=== PATIENT | female | born 1965 | race Caucasian/White ===

== ENCOUNTER 2019-01-26 18:47 | Emergency (ER) | payer BC ==
[2019-01-26 19:35] VITALS: BP 118/74
--- NOTE | 2019-01-26 19:35 | UC ---
Ear Complaint HPI - HPI Summary HPI Summary: 53-year-old female who complains of left earache and left-sided sinus pressure over the past 2 weeks. She did have cold symptoms over the past couple of weeks. She had been swimming approximately one week ago but not recently. - History of Current Complaint Chief Complaint: UCEar Stated Complaint: LEFT EAR PAIN Time Seen by Provider: 01/26/19 19:35 Hx Obtained From: Patient Hx Last Menstrual Period: 07/07/15 ?: No Onset/Duration: Gradual Onset Severity Initially: Mild Severity Currently: Moderate Pain Intensity: 5 Aggravating Factors: Nothing Alleviating Factors: Nothing - Patient has been taking Mucinex, Sudafed, Zyrtec without relief. Associated Signs/Symptoms: Positive: URI Symptoms - Allergies/Home Medications Allergies/Adverse Reactions: Allergies Allergy/AdvReac Type Severity Reaction Status Date / Time No Known Allergies Allergy Verified 07/28/15 18:48 PMH/Surg Hx/FS Hx/Imm Hx Previously Healthy: Yes Other History Of: Negative For: HIV, Hepatitis B, Hepatitis C, Anticoagulant Therapy - Surgical History Surgical History: None - Family History Known Family History: Positive: None - Social History Alcohol Use: Occasionally Substance Use Type: None Smoking Status (MU): Never Smoked Tobacco Review of Systems All Other Systems Reviewed And Are Negative: Yes ENT: Positive: Ear Ache, Nasal Discharge, Sinus Congestion, Sinus Pain/ Tenderness Is Patient Immunocompromised?: No Physical Exam Triage Information Reviewed: Yes Appearance: Well-Appearing, No Pain Distress, Well-Nourished Vital Signs: Initial Vital Signs Temp 98.4 F 01/26/19 19:27 Pulse 77 01/26/19 19:27 Resp 16 01/26/19 19:27 BP 118/74 01/26/19 19:27 Pulse Ox 100 01/26/19 19:27 Vital Signs Reviewed: Yes Eyes: Positive: Conjunctiva Clear ENT: Positive: Hearing grossly normal, Pharynx normal, Nasal congestion - Yellow nasal coryza, Nasal drainage, Uvula midline, Other - Right tympanic membrane is pearly-cox with good land armijo and light reflex, left tympanic membrane is bulging, translucent with yellow exudate behind it. Left maxillary sinus is tender on palpation. Neck: Positive: Supple, Nontender, No Lymphadenopathy Respiratory: Positive: Lungs clear, Normal breath sounds, No respiratory distress, No accessory muscle use Cardiovascular: Positive: RRR, No Murmur, Pulses Normal, Brisk Capillary Refill Musculoskeletal Exam: Normal Neurological Exam: Normal Psychological Exam: Normal Skin Exam: Normal Ear Complaint Course/Dx - Course Course Of Treatment: I'm going to treat the patient for a sinusitis as well as a left otitis media. She is to take the Augmentin with food. I'm also giving her Flonase 2 sprays in each nostril once a day for one week and then decrease to 1 spray in each nostril once a day for one week. She is to follow-up with her primary care provider in approximately 4-5 days if no improvement. - Differential Dx/Diagnosis Provider Diagnosis: Sinusitis, Left otitis media Discharge - Sign-Out/Discharge Documenting (check all that apply): Patient Departure All imaging exams completed and their final reports reviewed: No Studies - Discharge Plan Condition: Fair Disposition: HOME Prescriptions: Amoxicillin/Clavulanate TAB* [Augmentin TAB 875*] 875 mg PO BID 10 Days #19 tab Fluticasone NASAL SPRAY 50MCG* [Flonase NASAL SPRAY 50MCG*] 2 spray BOTH NARES DAILY 14 Days #1 btl Patient Education Materials: Sinusitis (ED) Referrals: ALONSO Herring [Primary Care Provider] - Additional Instructions: Increase fluids, follow up with your primary care provider in 4 or 5 days if no improvement. Continue your present medications. Take the Augmentin with food. - Billing Disposition and Condition Condition: FAIR Disposition: Home - Attestation Statements Provider Attestation: I was available for consult. This patient was seen by the ERAS[facility]. The patient was not presented to, seen by, or examined by me. -Aruna
[2019-01-26] MEDS ORDERED: Amoxicillin/Clavulanate TAB* 875 MG PO ONE (19:45)
== END 2019-01-26 19:52 | disposition home or self-care (01) ==
LOC: UCCORT 18:47
DX: J32.9 Chronic sinusitis, unspecified (principal); H66.92 Otitis media, unspecified, left ear
CPT/HCPCS: 99202; A9270-GY; G0463